=== PATIENT | male | born 1965 | race Caucasian/White ===

== ENCOUNTER 2025-10-03 06:16 | Outpatient (OUT) | payer OTHER, SELFPAY ==
--- OUTSIDE RECORDS SUMMARY | 2024-06-14 04:15 | XMS_ITS ---
Author Organization [facility] vices Address [address] [facility] [place] [id number] Care Team Providers Care Steel Tester Name Role Phone Marco Antonio Azul Unavailable [phone] Robyn White Unavailable [phone] REASON FOR VISIT 3 mo Lipids Social History Sex Assigned At : Social History Observation Description Sex Assigned At Male Encounters Encounter Location Date Provider Diagnosis Main [address] [facility] [place] [id number] 06/14/2024 Robyn White Plan Of Treatment Next Appt Details Provider Name:Marco Antonio Azul, 10/01/2026 03:45:00 PM, [address] [place], [place], [phone], Progress Notes * Cameron HOUSER EDOB: 6 (60 yo M)Acc No.[id number]:06/14/2024 Medical Note Patient: Rani patiño Cameron Olea :?Robyn White MDDOB:1965???Age:59 Y???Sex: MaleDate:06/14/2024hone:[phone]:[address], [place] Subjective: * Chief Complaints: * 3 mo Lipids * Electronic signature of Robyn White MD on 10/03/2025 at 06:25 AM ESTSign off status: Pending * Provider: Akila White MD Date: 0 06/14/2024 Generated for Printing/Faxing/eTransmitting on:?10/03/2025 06:25 AM EST
--- OUTSIDE RECORDS SUMMARY | 2025-09-27 10:45 | XMS_ITS ---
Author Organization [facility] vices Address [address] [place], [place] [id number] Care Team Providers Care Healthcare Recruiter Name Role Phone Marco Antonio Azul Unavailable [phone] Allergies Allergen (clinical drug ingredient) Drug/Non Drug Allergy documented on EMR Reaction Allergy Type Onset Date Status amoxicillin Amoxicillin Rash Drug Allergy 05/30/2019 Ac tive CiprofloxacinRash , HivesDrug Iqcabfo2105/30/2019ActiveKeflexRashDrug Allergy 05/30/2019ActiveNiaspanRashDrug Dtpozgz3205/30/2019Activepenicillin GPenicillin G Pot in DextroseHivesDrug Becymyu4005/30/2019ActivesulfadiazinesulfADIAZINEHives Drug Ztkugks1505/30/2019Active REASON FOR VISIT wellness Social History Sex Assigned At : Social History Observation Description Sex Assigned At Male Social History Social DeterminantsSocial InfoQuestionAnswerNotesPRAPAREDate Completed/Updated: 09/27/2025What is your current housing situation?I have housingAre you worried about losing your housing?NoWhat is the highest level of school that you have finished?More than 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 Check all that applyI do not have problems meeting my needs,I choose not to answer this questionHas lack of transportation kept you from medical appointments, meetings, work or from getting things needed for daily living?No,I choose not to answer this question How often do you see or talk to people that you care about and feel close to? (For example: talkingto friends on the phone, visiting friends or family, going to religious or club meetings)More than 5 times a weekHow stressed are you? Stress is when someone feels tense, nervous, anxious, or can't sleep at nightbecause their mind is troubledSomewhatIn the past year have you spent more than 2 nights in a row in a snf, retirement, shelter center, orjuvenile correctional facility? NoAre you a refugee?NoWhat country are you from?[place]Do you feel physically and emotionally safe where you currently live?YesIn the past year, have you been afraid of your partner or ex-partner?NoPRAPARE Score:1Sexual History:Social InfoQuestionAnswerNotesFamily PlanningAre you or your partner planning on becoming in the next year if not already ?No? What type of contraception are you using?NonePC[facility] and [facility] DemographicsSocial Info QuestionAnswerNotesPriprattville baptist hospitaly Care [facility] QuestionsDo you have any barriers to learning?I choose not to answer this questionpatient entered dataWhat is your preferred method of learning?I choose not to answer this questionpatient entered dataHow often do you need to have someone help you read instructions?I choose not to answer this questionpatient entered data Problems Problem Type SNOMED Code ICD Code Onset Dates Problem Status W/U Status Risk Notes Problem Hearing loss (84403462) Hearing difficult y of both ears (H91.93) Activeconfirmed Vital Signs Temperature 98.1 degrees Fahrenheit 09/27/20 25 Blood pressure systolic 118 mm Hg 09/27/20 25 Blood pressure diastolic 69 mm Hg 025 Heart Rate 59 /min 09/27/2025 Respiratory Rate 16 /min 09/27/2025 Height 69.00 in 09/27/2025 Weight 185.8 lbs 09/27/2025 BMI 27.43 kg/m2 09/27/2025 Oximetry 98 % 09/27/2025 Height-cm 175.26 cm 09/27/2025 Weight-kg 84.28 kg 09/27/2025 denies pain. Kadie Pryor 09/27/2025 03:37:08 PM EST > Encounters Encounter Location Date Provider Diagnosis Main [address] [place], [place] [id number] 09/27/2025 Marco Antonio Azul Encounter for vaishali ss examination Z00.00 ; Screening for diabetes mellitus Z13.1 ; Screening for prostate cancer Z12.5 ; Encounter for screening for cardiovascular disorders Z13.6 ; Dietary counseling Z71.3 and Exercise counseling Z71.82 Assessments Encounter Date Diagnosis (ICD Code) Assessment Notes Treatment Notes Treatment Clinical Notes Section Notes 09/27/2025 Encounter for wellness examinati on (ICD-10 - Z00.00) Pt is here for wellness today. Overall health is okay. I advised to get baseline tests and pt is agreeable for that. I advised regular exercise and eating a balanced diet with focus on eating less fried and fatty foods and eating more fresh fruits and vegetable in an attempt to achieve and maintain a healthy BMI and PVU We discussed the importance of vaccination including covid shots and yearly flu shots and all questions were answered in detail today. Pt will see us back in 2 week to discuss results. 09/27/2025Screening for diabetes mellitus (ICD-10 - Z13.1)09/27/2025Screening for prostate cancer (ICD-10 - Z12.5)09/27/2025Encounter for screening for cardiovascular disorders (ICD-10 - Z13.6)09/27/2025Dietary counseling (ICD-10 - Z71.3)09/27/2025Exercise counseling (ICD-10 - Z71.82) Plan Of Treatment Treatment Notes Assessment Notes Encounter for wellness examination Pt is here for wellness today. Overall health is okay. I advised to get baseline tests and pt is agreeable for that. I advised regular exercise and eating a balanced diet with focus on eating less fried and fatty foods and eating more fresh fruits and vegetable in an attempt to achieve and maintain a healthy BMI and PVU We discussed the importance of vaccination including covid shots and yearly flu shots and all questions were answered in detail today. Pt will see us back in 2 week to discuss results. Pending Test Test Name Order Date LIPID PANEL WITH REFLEX TO DIRECT LDL COMPREHENSIVE METABOLIC PANEL WITH GFR 1 11/27/2024 PSA, TOTAL, 3RD GENERATION 09/27/2025 HEMOGLOBIN A1C 09/27/2025 Next Appt Details Follow Up: 1 Year, Reason: lupis bejarano Provider Name:Marco Antonio Azul, 10/01/2026 03:45:00 PM, [address] [place], [place], [phone], History and Physical Notes * Examination CategorySub-CategoryDetailNotesCategory NotesGeneral ExaminationGeneral appearance:alert, pleasant, well-nourished and in no acute distressHead: normocephalic, atraumaticEyes:pupils equal, round, reactive to light and accommodationEars:auditory canal clear, tympanic membrane intact and clear bilaterally right ear failed finger rub testNose:nares patent , no lesions , sinuses nontender bilaterallyHeart:regular rate and rhythm without murmurs, gallops, clicks or rubsLungs:clear to auscultation bilaterally, with good air movement and no rales, rhonchi or wheezesSkin:skin is warm and dry, with no rashes, good skin turgor and normal hair distributionExtremities:normal extremity with no clubbing, cyanosis or edema , full range of motionPsych:alert and oriented x 3 , cooperative with exam , maintains good eye contact , normal affect / mood , speech is clear and coherentOral cavity:tongue is midline , palate normal , mucosa moistCQM ExceptionsCurrently taking Aspirin:Aspirin Use:: No Progress Notes * Cameron HOUSER EDOB: 6 (60 yo M)Acc No.[id number]:09/27/2025 Medical Note Patient: Cameron Dove Lefty :?Marco Antonio MunozdDOB:1965???Age:60 Y???Sex:Male Date:09/27/2025Phone:[phone]:[address] [place], [id number] Check In:03:23 PM EST Subjective: * Chief Complaints: * Lupis bejarano * HPI: ???Interim History:?60 year old patient is here today for wellness visit. Last wellness visit was : january 2024 Today patient denies any new complaints. Health has been good recently. Blood pressure today is: 118/69 Diabetic screening: A1c Cholesterol screening:lpid Colon cancer screening: colonoscopy in 2022 Prostate cancer screening: PSA ordered Depression screening: PHQ-9 negative? Smoking status: denies Alcohol use: minimal Drug use including marijuana: denies Dental screening: every 6 months Vision screening: every year goes in October Diet: eats a normal diet eats normal?quanties? Exercise: not? a whole lot specefic work outs does a lot other projects. * ROS: ???Negative except mentioned above in the HPI. * Medical History: Bronchitis, acute (466.0), Disorder of mitral valve, DESCRIPTION: Mitral valve disorder, Family history of cardiovascular disease, Family history of malignant neoplasm (V16.8), Family history of psychiatric condition (V17.0), Family history of stroke (cerebrovascular) (V17.1), Functional bowel disease, DESCRIPTION: Irritable bowel syndrome, Hypercholesteremia, DESCRIPTION: Hypercholesterolemia Hyperlipidemia NEC/NOS (272.4) Insomnia w/ sleep apnea, DESCRIPTION: Insomnia with sleep apnea MEDICAL: Hypercholesterolemia Medical History Verified? * Surgical History: Vasectomy, ? lasik, ? SURGICAL: Tonsillectomy and adenoidectomy, 2010-04-25? Surgical History verified.? * Hospitalization/Major Diagno stic Procedure: Denies Past Hospitalization.? Hospitalization Verified.? * Family History: F ather: , rheumatoid arthritis, diagnosed with Cancer. M other: , diagnosed with High Cholesterol. P aternal Grand Father: . P aternal Grand Mother: . M aternal Grand Father: . M aternal Grand Mother: . B rother: alive.?Sister: alive. 3 brother(s) , 2 sister(s) . . F amily History Verified.. * Social History: ???[facility] and [facility] Demographics:?[facility] Questions?Do you have any barriers to learning??I choose not to answer this question patient entered data ?What is your preferred method of learning? I choose not to answer this question patient entered data ?How often do you need to have someone help you read instructions??I choose not to answer this question patient entered data ???Sexual History:?Family Planning?Are you or your partner planning on becoming in the next year if not already ??No ?What type of contraception are you using? None ???Social Determinants:?PRAPARE?Date Completed/Updated:?09/27/2025 ?What is your current housing situation??I have housing ?Are you worried about losing your housing? 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 Check all that a pply?I do not have problems meeting my needs,I choose not to answer this question ?Has lack of transportation kept you from medical appointments, meetings, work or from getting things needed for daily living??No,I choose not to answer this question ?How often do you see or talk to people that you care about and feel close to? (For example: talking to friends on the phone, visiting friends or f amily, going to religious or club meetings)?More than 5 times a week ?How stressed are you? Stress is when someone feels tense, nervous, anxious, or can't sleep at night because their mind is troubled?Somewhat ?In the past year have you spent more than 2 nights in a row in a snf, retirement, shelter center, or juvenile correctional facility??No ?Are you a refugee??No ?What country are you from??[place] ?Do you feel physically and emotionally safe where you currently live?? Yes ?In the past year, have you been afraid of your partner or ex-partner?? No ?PRAPARE Score:?1 ??? * Medications: D iscontinuedOndansetron HCl 4 MG Tablet 1 tablet Orally Once a day Crestor 5 MG Tablet 1 tablet Orally Once a day , Notes to Pharmacist: Starting med. Does not wish to have 90 day Rx.Medication List reviewed and reconciled with the patientDiscontinued Ondansetron HCl 4 MG Tablet 1 tablet Orally Once a day Discontinued Crestor 5 MG Tablet 1 tablet Orally Once a day , Notes to Pharmacist: Starting med. Does not wish to have 90 day Rx.Medication List reviewed and reconciled with the patient * Allergies: A moxicillin: Rash - Allergy - Onset Date 05/30/2019Ciprofloxacin: Rash , Hives - Allergy - Onset Date 05/30/2019Keflex: Rash - Allergy - Onset Date 05/30/2019Niaspan: Rash - Allergy - Onset Date 05/30/2019Penicillin G Pot in Dextrose: Hives - Allergy - Onset Date 05/30/2019sulfADIAZINE: Hives - Allergy - Onset Date 05/30/2019yesAllergies Verified. Objective: * Vitals: T emp:98.1F, Wt:185.8lbs, Ht: 69.00 in, BMI:27.43Index, BP:118/69mm Hg, HR:59/min, RR:16/min, Pain scale:01-10, Oxygen sat %:98%, Wt-k.28 kg, Ht-cm: 175.26 cm, Body Surface Area: 2.02. denies pain.Kadie Pryor 09/27/2025 03:37:08 PM EST > . * Examination: ???CQM Exceptions: ?Currently taking Aspirin:? Aspirin Use:?No?General Examination: ?General appearance:?alert, pleasant, well-nourished and inno acute distress.?Head:?normocephalic, atraumatic.?Eyes:?pupils equal, round, reactive to light and accommodation.?Ears:?auditory canal clear, tympanic membrane intact and clear bilaterally ?right ear failed finger rub test.?Nose:?nares patent , no lesions , sinuses nontender bilaterally.?Oral cavity:?tongue is midline , palate normal , mucosa moist.?Skin:?skin is warm and dry, with no rashes, good skin turgor and normal hair distribution.?Heart:?regular rate and rhythm without murmurs, gallops, clicks or rubs.?Lungs:?clear to auscultation bilaterally, with good air movement and no rales, rhonchi or wheezes.?Extremities:?normal extremity with no clubbing, cyanosis or edema , full range of motion.?Psych:?alert and oriented x 3 , cooperative with exam , maintains good eye contact , normal affect / mood , speech is clear and coherent.??? Assessment: * Assessment: 1.?Encounter for wellness examination - Z00.00 (Primary)???2.?Screening for diabetes mellitus - Z13.1???3.?Screening for prostate cancer - Z12.5?&#160 ;?4.?Encounter for screening for cardiovascular disorders - Z13.6???5.&#160 ;Dietary counseling - Z71.3???6.?Exercise counseling - Z71.82??? Plan: * Treatment: Notes: Pt is here for wellness today. Overall health is okay. I advised to get baseline tests and pt is agreeable for that. I advised regular exercise and eating a balanced diet with focus on eating less fried and fatty foods and eating more fresh fruits and vegetable in an attempt to achieve and maintain a healthy BMI and PVU We discussed the importance of vaccination including covid shots and yearly flu shots and all questions were answered in detail today. Pt will see us back in 2 week to discuss results.???2.?Screening for diabetes mellitus?LAB: HEMOGLOBIN A1C3.?Screening for prostate cancer?LAB: PSA, TOTAL, 3RD GENERATION4.?Encounter for screening for cardiovascular disorders?LAB: LIPID PANEL WITH REFLEX TO DIRECT LDL ?LAB: COMPREHENSIVE METABOLIC PANEL WITH GFR * Procedure Codes: 3 078F HTN DIAST BP < 076395D HTN SYST BP < 130 * Preventive Medicine: ??Counseling:?Care goal follow-up plan:?Nutrition/Dietary Counseling provided Yes ?BMI management provided?Yes * Follow Up: 1 Year (Reason: wellness) Billing Information: * [id number] Est Pt 40-64. * Procedure Codes: 3078F HTN DIAST BP < 80. 3074F HTN SYST BP < 130. * ign off status: Completed true * Provider: Ramila Azul Date: 1 11/27/2024 Generated for Printing/Faxing/eTransmitting on:?10/03/2025 06:25 AM EST
--- OUTSIDE RECORDS SUMMARY | 2025-10-03 06:25 | XMS_ITS | Clinical Summary ---
Author Organization [facility] Address [address] [place] [address] Care Team Providers Care Hop Farm Worker Name Role Phone Estela Ferrer DO Unavailable [phone] Allergies Active AllergyReactionsCriticalityNoted DateCommentsCephalexinHives,RashLow 05/30/20198094LmezikzuwatsiJhilx02/23/2019 Other Reaction(s): Rash , Hives NiacinHives,OompKgm6305/30/2019Penicillin G Potassium In Q7dUvxxm90/23/2019Sulfa EvcbtytenzwTdxun43/23/2019 Medications MedicationSigDispense QuantityRefillsLast FilledStart DateEnd DateStatus meclizine (Antivert) 25 MG tablet Indications:DizzinessTake 1 tablet (25 mg) by mouth 3 (three) times a day as needed for dizziness or nausea 30 tablet ctive Active Problems ProblemNoted DateDiagnosed DateBalance weyyqovj98/17/1167Rvxlqhhrmiq27/17/2025 Family History Medical HistoryRelationNameCommentsBone cancerFatherHyperlipidemiaMotherStroke MotherRelationNameStatusCommentsFatherMother Social History Tobacco UseTypesPacks/DayYears UsedDateSmoking Tobacco: NeverSmokeless Tobacco: NeverSex and Gender InformationValueDate RecordedSex Assigned at BirthNot on fileLegal NhrEgdj5701/20/2023 7:00 PM EDTGender IdentityNot on fileSexual OrientationNot on file Last Filed Vital Signs Vital SignReadingTime TakenCommentsBlood Wxvqluam416/8205/23/2025 11:01 AM EDT Kryxu739105/23/2025 11:01 AM YTXLmbrvmaniya45.4 ??C (97.5 ??F)05/23/2025 11:01 AM EDTRespiratory Rate--Oxygen Fjairysrpi18%05/23/2025 11:01 AM EDTInhaled Oxygen Concentration--Bqjknn31.6 kg (180 lb)05/23/2025 11:01 AM EZRTkovmt683.3 cm (5' 9 )01/16/2025 4:37 PM EDTBody Mass Index26.58001/16/2025 4:37 PM EDT Plan of Treatment Not on file Insurance Care Teams Team MemberRelationshipSpecialtyStart DateEnd Date Estela Ferrer DO [address] [place] [address] Referring PhysicianNeurology01/16/25
--- OUTSIDE RECORDS SUMMARY | 2025-10-03 06:25 | XMS_ITS | Patient Health Record ---
Author Organization Formerly [facility] vices Address [address] [place], [place] [id number] Care Team Providers Care Evaluation Specialist Name Role Phone Marco Antonio Azul Unavailable [phone] Allergies Allergen (clinical drug ingredient) Drug/Non Drug Allergy documented on EMR Reaction Allergy Type Onset Date Status amoxicillin Amoxicillin Rash Drug Allergy 05/30/2019 Ac tive CiprofloxacinRash , HivesDrug Sdjahgq6605/30/2019ActiveKeflexRashDrug Allergy 05/30/2019ActiveNiaspanRashDrug Mwxvuuy5505/30/2019Activepenicillin GPenicillin G Pot in DextroseHivesDrug Hjqkuty5505/30/2019ActivesulfadiazinesulfADIAZINEHives Drug Lavrgwu8705/30/2019Active Reason For Referral Reason vertigo likely BPPV Diagnosis 1 Vertigo (R42) Referral Organization Main Referring Provider First Name Marco Antonio Referring Provider Last Name Jorge Alberto Referring Provider Speciality Physician Pneumatic Systems Operator Referred Provider [facility] Referred Provider Specialty Physical The rapist General Notes Cassandra Suggs 025 09:52:37 AM >pt called to say that his issue has cleared up, so he is not going to schedule with referral to Uyen BRADLEY Christina 06/14/2025 11:25:58 AM >Referral F/U sent. ceUyen kumar Christina 07/20/2025 11:07:22 AM >Per pt, not going to schedule. Closing referral. ceb Referral Priority Routine Immunizations Vaccine Route Administration Date Status Comme nts *Tdap (Adacel)-Private IM Intramuscular 02/02/2024 Adminis tered *Tdap (Adacel)-VFCIM Rouarizpvcuyz20/10/2014dministeredStatus:Complete ,Reason:Given or N/A ,[facility] [id number] Social History Tobacco Use: Social History Observation Description Date Details (start date - stop date) Never Smoker NA - NA Sex Assigned At : Social History Observation Description Sex Assigned At Male Social History Social DeterminantsSocial InfoQuestionAnswerNotesPRAPAREDate Completed/Updated: 09/27/2025patient entered dataWhat is your current housing situation?I have housingpatient entered dataAre you worried about losing your housing?No patient entered dataWhat is the highest level of school that you have finished?More than high schoolpatient entered dataWhat 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 (For example: talkingto friends on the phone, visiting friends or family, going to sabianism or club meetings)More than 5 times a weekpatient entered dataHow stressed are you? Stress is when someone feels tense, nervous, anxious, or can't sleep at nightbecause their mind is troubledSomewhatpatient entered dataIn the past year have you spent more than 2 nights in a row in a fpc, nursing home, jail center, orjuvenile correctional facility?Nopatient entered dataAre you a refugee?Nopatient entered dataWhat country are you from?[place]patient entered dataDo you feel physically and emotionally safe where you currently live?Yespatient entered dataIn the past year, have you been afraid of your partner or ex-partner?Nopatient entered dataPRAPARE Score:1Sexual History:Social Info QuestionAnswerNotesFamily PlanningAre you or your partner planning on becoming in the next year if not already ?No? What type of contraception are you using?NonePCMH and UDS DemographicsSocial InfoQuestionAnswerNotesPrimar Care [facility] QuestionsDo you have any barriers to learning?I choose not to answer this questionpatient entered dataWhat is your preferred method of learning?I choose not to answer this questionpatient entered dataHow often do you need to have someone help you read instructions?I choose not to answer this questionpatient entered dataDrugs/Alcohol/Caffeine:Social InfoQuestionAnswer NotesCAGE-AID Questionnaire (2018 Edition)Have you ever felt that you ought to cut down on your drinking or drug use?Nopatient entered dataHave people annoyed you by criticizing your drinking or drug use?Nopatient entered data Have you ever felt bad or guilty about your drinking or drug use?Nopatient entered dataHave you ever had a drink or used drugs first thing in the morning to steady your nerves or to get rid of a hangover?Nopatient entered dataCAGE- AID Jrrhb3QefumzckjxhjiwCgduzhevSsinimyfAqwbmq:2-3 cups per dayTobacco Use: Social InfoQuestionAnswerNotesTobacco Control (Standard)Tobacco use:Nonsmoker Tobacco Use/SmokingTobacco use:nonsmokerpatient entered dataAdditional DetailsCategorySocial InfoOptionsDetailsMiscellaneous:Occupation:works full-time Culture/Language BarrierNoEducation LevelCollegeBarriers to LearningNoneLearning PreferenceReadingHow often do you need to have someone help you read instructionsNeverSafetyPatient feels safe in relationshipsYes Drugs/Alcohol/Caffeine:Do you smoke marijuana?DeniesDo you drink alcohol?minimal Problems Problem Type SNOMED Code ICD Code Onset Dates Problem Status W/U Status Risk Notes Problem Benign prostatic hyp ertrophy without outflow obstruction (076856272) Benign prostatic hyperplasia without lower urinary tract symptoms (N40.0) ActiveconfirmedPSA orderedProblemHyperlipidaemia (04913046)Hyperlipidemia, unspecified hyperlipidemia type (E78.5)ActiveconfirmedProblemHearing loss (91663878)Hearing difficulty of both ears (H91.93)ActiveconfirmedProblem Hypercholesterolemia (85269712)Hypercholesterolemia (E78.00)Activeconfirmed Comment:Discussed with patient at length - reviewed lab work: adviced that he should be on a medication. He stated that he has tried medications in the past, for now he will discuss option of Zocor vs Zetia with his , and then RTC and discuss this further. PVU.,Story:ASCVD score : 7.8% - moderate to high intensity,ProblemCOVID-19 (894309506)COVID-19 (U07.1)Activeconfirmed Comment:Day 4 of sickness Doing well today. However, he does meet the criteria due to BMI for monoclonal antibodies. Called ER confirmed - and call patient back - he will be going to the [facility] for monoclonal antibodies. Advised to obtain oximeter, and monitor oxygenation. Discussed with patient at length - counselled on hydration and respiratory distress. He will go to ER or call 911 if he develops any respiratory distress. He does understand the limitation of this assessment without any physical examination., Problemhypercholesterolemia (disorder) (87301356)Hypercholesteremia (E78.00) 08/24/2007ctiveconfirmedDescription:HypercholesterolemiaProblemRheumatic mitral valve disease (37535790)Disorder of mitral valve (I05.9)08/24/2007ctive confirmedDescription:Mitral valve disorderProblemAcute sinusitis (disorder) (77352764)Acute sinusitis (461.8) (461.8)ActiveconfirmedComment:Instructed to take all medications as prescribed, increase oral fluids, return if symptoms w orsen or do not get better. Patient verbalizes and agrees with plan of care., ProblemDepression screening (347861967)Screening for depression (Z13.31)Active confirmedDescription:Depression screeningProblemAbscess or cellulitis of leg (L02.419)Activeconfirmed Comment:Follicuilitis vs insect bite. Certainly small in size and does not require systemic antibiotics at this time. Advised to use Mupirocin Antibiotics topical and if not better to call our office.,Description:Cellulitis and abscess of leg ProblemOtitis media (10414467)Otitis media of right ear (382.9) (382.9)Active confirmedProblemHyperlipidemia (98693229)Hyperlipidemia NEC/NOS (272.4) (272.4) 08/24/2007ctiveconfirmed Comment:Advised to stop Simvastatin He has no cardiac risk factors No HTN, DM, Tobacco, Obesity, Family h/o CAD or CVA The highest LDL was 167mg/dL He has myalgia occaionally Advised to stop Statins. 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 NO concerns, based on his medical history and physical exam. Continue. no bloodwork needed today (will bring in a copy of what was done at work recently). (Will do prostate check, etc when he turns 51 next year.),ProblemFamily history of mental disorder (239155082)Family history of psychiatric condition (V17.0) (V17.0) 08/24/2007ctiveconfirmedProblemAdult health examination (634646110)Encounter for wellness examination in adult (Z00.00)Activeconfirmed Comment:HEALTHY; had a COLONOSCOPY IN 2011, NORMAL. (HE WILL CALL [facility]S OFFICE FOR THE REPORT).REPEAT DUE IN 2021. -NO RED FLAGS -ARAMIS UNDER CONTROL, USING MACHINE. -TINNITUS, NORMAL EXAM; DUE LIKELY TO CHRONIC NOISE EXPOSURE, WILL REFER ENT () -DISCUSSED PSA SCREENING, WOULD LIKE TO GET IT. 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 Start patient on PO prednisone for now, and will set up with orthofor possible joint drainage. No concern for septic arthritis again, but the swelling has not gone down, so will need to set up drainage. PVU.,ProblemHistory of malignant neoplasm (207567018)Family history of malignant neoplasm (V16.8) (V16.8)08/24/2007ctiveconfirmedProblemAtypical chest pain (897096090)Atypical chest pain (R07.89)ActiveconfirmedComment:fairly LOW level of concern for this being cardiac, but on the other hand, he is 53 yr old and I think a non-nuclear GXT is indicated.,ProblemOtitis externa of right ear (0621720190302944)External otitis of right ear (H60.91)ActiveconfirmedComment:Nearly resolved. Continue BID Cortisporin Otic drops, 7 days longer.,Description:Otitis externa of right ear ProblemAcute bronchitis (disorder) (00446055)Bronchitis, acute (466.0) (466.0) 09/24/2008ctiveconfirmedProblemChronic diarrhea (217473245)Chronic diarrhea (K52.9)Activeconfirmed Comment:Chronic diarrhea since march years No work up in the past done No weight loss No Gi bleednig PLAN: 1. Check CBC, CMP, TSH, Celilac screen, Stool studies 2. Refer to GI for further work up (Colonoscopy), ProblemDysfunction of eustachian tube (94735528)Eustachian tube dysfunction (381.81) (381.81)ActiveconfirmedComment:ACUTE OTITIS MEDIA resolved; will try pseudoephedrine prn. KEEP ENT appt, in case it doesn't improve.,Problem Obstructive sleep apnea syndrome (63350062)ARAMIS on CPAP (G47.33)Activeconfirmed Comment:Needs an Rx for Cpap filters., Vital Signs Heart Rate 59 /min 09/27/2025 denies pain. Kadie Schumacher 09/27/2025 03:37:08 PM EST > Temperature 98.1 degrees Fahrenheit 09/27/2025 jai es pain. Kadie Pryor 09/27/2025 03:37:08 PM EST > Respiratory Rate 16 /min 09/27/2025 denies pain . Kadie Pryor 09/27/2025 03:37:08 PM EST > Oximetry 98 % 09/27/2025 denies pain. Kadie Schumacher 09/27/2025 03:37:08 PM EST > Blood pressure diastolic 69 mm Hg 09/27/2025 den ies pain. Kadie Pryor 09/27/2025 03:37:08 PM EST > Height-cm 175.26 cm 09/27/2025 denies pain. Kadie Schumacher 09/27/2025 03:37:08 PM EST > Weight-kg 84.28 kg 09/27/2025 denies pain. Kadie Schumacher 09/27/2025 03:37:08 PM EST > Height 69.00 in 09/27/2025 denies pain. Kadie Schumacher 09/27/2025 03:37:08 PM EST > Blood pressure systolic 118 mm Hg 09/27/2025 jai es pain. Kadie Pryor 09/27/2025 03:37:08 PM EST > Weight 185.8 lbs 09/27/2025 denies pain. Kadie Schumacher 09/27/2025 03:37:08 PM EST > BMI 27.43 kg/m2 09/27/2025 denies pain. Kadie Schumacher 09/27/2025 03:37:08 PM EST > Encounters Encounter Location Date Provider Diagnosis Main [address] , [place] [id number] 05/24/2025 Marco Antonio Studd Vertigo R42 ; Dietar y counseling Z71.3 ; Exercise counseling Z71.82 and BMI 27.0-27.9,adult Z68.27 Main [address] , [place] [id number] 09/27/2025 Marco Antonio Studd Encounter for wellne ss examination Z00.00 ; Screening for diabetes mellitus Z13.1 ; Screening for prostate cancer Z12.5 ; Encounter for screening for cardiovascular disorders Z13.6 ; Dietary counseling Z71.3 and Exercise counseling Z71.82 Main [address] , [place] [id number] 05/24/2025 Marco Antonio Studd [id number] [facility] [place] [id number]/2025Justin [id number] [facility] [place] [id number]/Justin Studd Assessments Encounter Date Diagnosis (ICD Code) Assessment Notes Treatment Notes Treatment Clinical Notes Section Notes 05/24/2025 Vertigo (ICD-10 - R42) re refer to PT for insurance purposes start zofran as needed for the Vomiting pt agreeable with plan follow up as needed discussed DDx with patient 05/24/2025Dietary counseling (ICD-10 - Z71.3)09/27/2025Screening for diabetes mellitus (ICD-10 - Z13.1)09/27/2025Encounter for wellness examination (ICD-10 - Z00.00) Pt is here for [...] back in 2 week to discuss results. 05/24/2025Exercise counseling (ICD-10 - Z71.82)09/27/2025Screening for prostate cancer (ICD-10 - Z12.5)09/27/2025Encounter for screening for cardiovascular disorders (ICD-10 - Z13.6)5BMI 27.0-27.9,adult (ICD-10 - Z68.27) 09/27/2025Dietary counseling (ICD-10 - Z71.3)09/27/2025Exercise counseling (ICD- 10 - Z71.82) Plan Of Treatment Pending Test Test Name Order Date LIPID PANEL WITH REFLEX TO DIRECT LDL COMPREHENSIVE METABOLIC PANEL WITH GFR 1 11/27/2024 PSA, TOTAL, 3RD GENERATION 09/27/2025 HEMOGLOBIN A1C 09/27/2025 Next Appt Details Provider Name:Marco Antonio Munozbenitez, 10/01/2026 03:45:00 PM, [address], [place], [id number], Insurance Providers Payer Name Payer Address Payer Phone Subscriber Number Group Number Insured Name Patient Relationship to Insured Coverage Start Date Coverage End Date [employer] [address] [place] [address] [id number] Cameron Houser Self - patient is the insured 2 [employer] [address] [place], [place] [id number], DuaneSelf - patient is the [id number] Medical (General) History Medical History History ICD Code Bronchitis, acute (466.0), Disorder of mitral valve, DESCRIPTION: Mitral valve disorder,Family history of cardiovascular disease,Family history of malignant neoplasm (V16.8),Family history of psychiatric condition (V17.0),Family history of stroke (cerebrovascular) (V17.1),Functional bowel disease, DESCRIPTION: Irritable bowel syndrome,Hypercholesteremia, DESCRIPTION: HypercholesterolemiaHyperlipidemia NEC/NOS (272.4)Insomnia w/ sleep apnea, DESCRIPTION: Insomnia with sleep apnea MEDICAL: HypercholesterolemiaSurgical History Surgery Date(Month/Year) Vasectomy, lasik,SURGICAL: Tonsillectomy and adenoidectomy,2010-04-25
--- OUTSIDE RECORDS SUMMARY | 2025-10-03 06:25 | XMS_ITS | Clinical Summary ---
Author Organization [employer] tem Address [id number] [address] [place] [address] Care Team Providers Care Coffee Grinder Name Role Phone Salvatore Sheldon MD Primary Care Provider [phone] Allergies Active AllergyReactionsCriticalityNoted BjshBafmlsjwRsifjznymhhzpTkzfq42/23/2019 JredfecjcaLjvxq07/23/6056ZhkpffGczdp13/23/0958NeotbmrdoueFrsrs97/23/2019Sulfa (Sulfonamide Antibiotics)Hives07/31/2019Sulfamethoxazole-Daddprsgeono78/13/2022 Other reaction(s): hives Medications No known medications Active Problems No known active problems Family History Medical HistoryRelationNameCommentsCancerFatherStrokeMotherRelationNameStatus CommentsFatherDeceasedMotherDeceased Social History Tobacco UseTypesPacks/DayYears UsedDateSmoking Tobacco: NeverSmokeless Tobacco: Never Tobacco Cessation:Counseling Given: Not Answered Alcohol UseStandard Drinks/WeekCommentsYes0 (1 standard drink = 0.6 oz pure alcohol)sociallyChildcareAnswerDate PobtuxnbWwttqqxduAhqtyuw19/12/2019Employment AnswerDate GwgnamdoCiycaqwjgfQgthjva35/12/2019Purpose - LifeAnswerDate Recorded Purpose and direction in kzoaNakrchn78/11/2021ex and Gender InformationValue Date RecordedSex Assigned at BirthNot on fileLegal NbhTmag9306/13/2015 11:56 AM EDTGender IdentityNot on fileSexual OrientationNot on file Last Filed Vital Signs Vital SignReadingTime TakenCommentsBlood Qasolbis570/7902 9:49 AM EST Mgowz8648/20/2023 9:49 AM IGLFctwpsacygs55.6 ??C (97.9 ??F)12/28/2022 7:15 AM ESTRespiratory Hexe489312/28/2022 9:49 AM ESTOxygen Qpowcealvb53%12/28/2022 9:49 AM ESTInhaled Oxygen Concentration--Efodfy69.6 kg (180 lb)12/28/2022 7:15 AM EST Xmlpjz660.3 cm (5' 9 )12/28/2022 7:15 AM ESTBody Mass Index26.58012/28/2022 7:15 AM EST Plan of Treatment Health MaintenanceDue DateLast DoneCommentsDepression Vwkefkzvh33/31/1978Tobacco Dlygzhyeg37/31/1978Zoster (Shingles) Vaccine (1 of 2)2016Adult BMI Cdhvvcysk36/Influenza Mdbzycc14/03/2016, 08/13/2014 Nzrortnjywo49/20/203302/, 3DTaP,Tdap and Td Vaccines (3 - Td or Tdap)/, 01/15/2014 Medical Devices Not on file Procedures Procedure NamePriorityDate/TimeAssociated VytojouriMydeqdagBKBFKXTPZZM08/20/2023 8:55 AM EST from Last 3 Months or Most Recently Relevant to Health Maintenance Results * Colonoscopy (12/28/2022 8:55 AM EST)Specimen (Source)Anatomical Location / LateralityCollection Method / VolumeCollection TimeReceived Time12/28/2022 8:55 AM EST Narrative PM [facility] - 12/28/2022 9:16 AM EST [facility] Patient Name: Cameron Houser ?? Procedure Date No Time: 12/28/2022 ?? CSN : [id number] Date of : 1965 Admit Type: Outpatient Age: 57 Room: [facility] OR Gender: Male Note Status: Finalized Attending MD: Jona Quijano , DO Procedure: ? Colonoscopy Indications: ? Screening for colorectal malignant neoplasm Providers: ? Jona Quijano DO Referring MD: ?Jona Quijano DO Medicines: ? Propofol per Anesthesia Complications: ? No immediate complications. Procedure: ? After I obtained informed consent, the scope was ? passed under direct vision. Throughout the procedure, ? the patient's blood pressure, pulse, and oxygen ? saturations were monitored continuously. The [facility] ? PCF-H190DL # [id number] PEDIATRIC COLONOSCOPE was ? introduced through the anus and advanced to the cecum, ? identified by appendiceal orifice and ileocecal valve. ? The colonoscopy was performed with moderate difficulty ? due to a redundant colon. Successful completion of the ? procedure was aided by applying abdominal pressure. ? The patient tolerated the procedure well. The quality ? of the bowel preparation was good. Findings: ? The perianal and digital rectal examinations were normal. ? A few medium-mouthed diverticula were found in the sigmoid colon and ? descending colon. ? The exam was otherwise without abnormality on direct and retroflexion ? views. Estimated Blood Loss: ??Estimated blood loss: none. Impression: ?- Diverticulosis in the sigmoid colon and in the ? descending colon. ? - The examination was otherwise normal on direct and ? retroflexion views. ? - No specimens collected. Recommendation: ?- Discharge patient to home. ? - Patient has a contact number available for ? emergencies. The signs and symptoms of potential ? delayed complications were discussed with the patient. ? Return to normal activities tomorrow. Written ? discharge instructions were provided to the patient. ? - High fiber diet for the rest of the patient's life. ? - Repeat colonoscopy in 10 years for screening ? purposes. ? - Return to my office PRN. Procedure Code(s): ? --- Professional --- ? G0121, Colorectal cancer screening; colonoscopy on ? individual not meeting criteria for high risk Diagnosis Code(s): ? --- Professional --- ? Z12.11, Encounter for screening for malignant neoplasm of colon ? K57.30, Diverticulosis of large intestine without perforation or abscess ? without bleeding CPT copyright 2020 [employer]. All rights reserved. The codes documented in this report are preliminary and upon weigher alloy review may be revised to meet current compliance requirements. DO Jona Philippe DO 12/28/2022 9:16:28 AM Number of Addenda: 0 Note Initiated On: 12/28/2022 8:55 AM Procedure Note Jona Quijano DO - 12/28/2022 [facility] Patient Name: Cameron Houser Procedure Date No Time: 12/28/2022 CSN : [id number] Date of : 1965 Admit Type: Outpatient Age: 57 Room: [place] [address] Gender: Male Note Status: Finalized Attending MD: Jona Quijano DO Procedure: Colonoscopy Indications: Screening for colorectal malignant neoplasm Providers: Jona Quijano DO Referring MD: Jona Quijano DO Medicines: Propofol per Anesthesia Complications: No immediate complications. Procedure: After I obtained informed consent, the scope was passed under direct vision. Throughout theprocedure, the patient's blood pressure, pulse, and oxygen saturations were monitored continuously. [facility]-H[facility] # [id number] PEDIATRIC COLONOSCOPE was introduced through the anus and advanced to thececum, identified by appendiceal orifice and ileocecalvalve. The colonoscopy was performed with moderatedifficulty due to a redundant colon. Successful completion ofthe procedure was aided by applying abdominal pressure. The patient tolerated the procedure well. Thequality of the bowel preparation was good. Findings: The perianal and digital rectal examinations were normal. A few medium-mouthed diverticula were found in the sigmoid colon and descending colon. The exam was otherwise without abnormality on direct and retroflexion views. Estimated Blood Loss: Estimated blood loss: none. Impression: - Diverticulosis in the sigmoid colon and in the descending colon. - The examination was otherwise normal on directand retroflexion views. - No specimens collected. Recommendation: - Discharge patient to home. - Patient has a contact number available for emergencies. The signs and symptoms of potential delayed complications were discussed with thepatient. Return to normal activities tomorrow. Written discharge instructions were provided to thepatient. - High fiber diet for the rest of the patient'slife. - Repeat colonoscopy in 10 years for screening purposes. - Return to my office PRN. Procedure Code(s): --- Professional --- G0121, Colorectal cancer screening; colonoscopy on individual not meeting criteria for high risk Diagnosis Code(s): --- Professional --- Z12.11, Encounter for screening for malignant neoplasm of colon K57.30, Diverticulosis of large intestine without perforation orabscess without bleeding CPT copyright 2020 [employer]. All rights reserved. The codes documented in this report are preliminary and upon weigher alloy reviewmay be revised to meet current compliance requirements. DO Jona Philippe DO 12/28/2022 9:16:28 AM Number of Addenda: 0 Note Initiated On: 12/28/2022 8:55 AM Authorizing ProviderResult TypeResult StatusMicjayesh MONTOYA PROCEDURE ORDERABLESFinal ResultPerforming OrganizationAddressCity/State/ZIP CodePhone Number PM CARDIOVASCULAR from Last 3 Months or Most Recently Relevant to Health Maintenance Insurance Care Teams Team MemberRelationshipSpecialtyStart DateEnd Date Salvatore Sheldon MD PCP - GeneralFamily Medicine06/10/19
[2025-10-03 07:31] LABS: Alanine Aminotransferase 31 U/L (16-63); Albumin Globulin Ratio 1.3; Albumin Level 3.9 g/dL (3.4-5.0); Alkaline Phosphatase 88 U/L (46-116); Anion Gap 9.7; Aspartate Amino Transferase 19 U/L (15-37); Blood Urea Nitrogen 14.0 mg/dL (7.0-18.0); Calcium 8.7 mg/dL (8.5-10.1); Carbon Dioxide 31.4 mmol/L (21.0-32.0); Chloride 105 mmol/L (98-107); Cholesterol 233 mg/dL (<=200); Estimated GFR (African America >60 (>=60 mL/min/1.73m^2); Estimated GFR (Non-African Ame >60 (>=60 mL/min/1.73m^2); Globulin 3.1 g/dL; Glucose 95 mg/dL (74-106); HDL Cholesterol 36 mg/dL (40-60); Potassium 4.1 mmol/L (3.5-5.1); Sodium 142 mmol/L (136-145); Total Protein 7.0 g/dL (6.4-8.2); Triglycerides 101 mg/dL (<=150); VLDL CHOLESTEROL 20.2 mg/dL
== END 2025-10-03 06:17 | disposition home or self-care (01) ==
LOC: LAB 06:22
DX: Z12.5 Encounter for screening for malignant neoplasm of prostate (principal); Z13.1 Encounter for screening for diabetes mellitus; Z13.6 Encounter for screening for cardiovascular disorders
CPT/HCPCS: 36415; 80053; 80061; 83036; G0103